=== PATIENT | male | born 1955 | race Caucasian/White ===

== ENCOUNTER → 2021-06-02 | Outpatient (CLI) | payer MEDICARE ==
[~2021-06-02] MED LIST: AMLO1TAB24; AMLO1TAB25; BREO1INH; CLAR1TAB13 PO; MECL-86; MULTTAB86 PO; OMEP-218
== END ==
LOC: M LABSMTC 09:20
PROVIDERS: ATTEND Anesthesiology
DX: Z01.812 Encounter for preprocedural laboratory examination (principal); Z20.822 Contact with and (suspected) exposure to COVID-19

== ENCOUNTER 2021-06-06 06:46 | Day surgery (SDC) | payer MEDICARE ==
[~2021-06-06] VITALS: Ht 170.2 cm; Wt 73.8 kg
[~2021-06-06 06:46] MED LIST changes: +NS 1,000 ML IV ONE
[2021-06-06] MEDS ORDERED: LIDOCAINE 2% 100MG/5ML SDV (FOR ANES.) As Ordered ONE (07:53)
[2021-06-06] MEDS ORDERED: propofoL 200 MG/20 ML VIAL As Ordered ONE (07:53)
--- NOTE | 2021-06-06 08:00 | ROOR ---
Patient Name: René Alberto Procedure Date: 06/06/2021 7:34 AM Date of : 1955 Age: 65 Room: [facility], [facility]IN [facility] Gender: Male Note Status: Finalized Procedure: Colonoscopy Indications: High risk colon cancer surveillance: Personal history of colonic polyps, Last colonoscopy: March 2015 Providers: Juaquin Lyon MD Referring MD: DARIEL ADLER MD Requesting Provider: Medicines: Monitored Anesthesia Care Complications: No immediate complications. Procedure: Pre-Anesthesia Assessment: - The heart rate, respiratory rate, oxygen saturations, blood pressure, adequacy of pulmonary ventilation, and response to care were monitored throughout the procedure. The Colonoscope was introduced through the anus and advanced to 10 cm into the ileum. The colonoscopy was performed without difficulty. The patient tolerated the procedure well. The quality of the bowel preparation was good. Findings: The perianal and digital rectal examinations were normal. The terminal ileum contained a single localized non-bleeding aphtha. No stigmata of recent bleeding were seen. Biopsies were taken with a cold forceps for histology. The remainder of the exam in the terminal ileum was normal. Four sessile polyps were found in the sigmoid colon, splenic flexure and ascending colon. The polyps were diminutive in size. These polyps were removed with a cold snare. Resection and retrieval were complete. Mild sigmoid diverticulosis and small internal hemorrhoids. The exam was otherwise without abnormality on direct and retroflexion views. Impression: - A single erosison in the terminal ileum (likely prep related). Biopsied. - Four diminutive polyps in the sigmoid colon, at the splenic flexure and in the ascending colon, removed with a cold snare. Resected and retrieved. - Mild sigmoid diverticulosis and small internal hemorrhoids. - The examination was otherwise normal on direct and retroflexion views. Recommendation: - Repeat colonoscopy in 3 years for surveillance. Procedure Code(s): --- Professional --- 68119, Colonoscopy, flexible; with removal of tumor(s), polyp(s), or other lesion(s) by snare technique 66616, 59, Colonoscopy, flexible; with biopsy, single or multiple Diagnosis Code(s): --- Professional --- K63.5, Polyp of colon K63.89, Other specified diseases of intestine Z86.010, Personal history of colonic polyps CPT copyright 2019 [employer]. All rights reserved. The codes documented in this report are preliminary and upon motion study analyst review may be revised to meet current compliance requirements. Juaquin Lyon MD Juaquin Lyon MD 06/06/2021 8:00:32 AM Electronically signed by Juaquin Lyon MD Number of Addenda: 0 Note Initiated On: 06/06/2021 7:34 AM Estimated Blood Loss: Estimated blood loss: none.
[2021-06-06 08:25] VITALS: BP 159/81
== END 2021-06-06 11:45 | disposition home or self-care (01) ==
LOC: M OPP 06:46
PROVIDERS: ATTEND Internal Medicine Gastroenterology
DX: Z12.11 Encounter for screening for malignant neoplasm of colon (principal); Z86.010 Personal history of colon polyps; K63.5 Polyp of colon; K63.89 Other specified diseases of intestine; K57.30 Diverticulosis of large intestine without perforation or abscess without bleeding; K64.8 Other hemorrhoids; R12 Heartburn; Z79.899 Other long term (current) drug therapy

== ENCOUNTER 2024-06-01 15:26 | Emergency (ER) | payer MEDICARE ==
[~2024-06-01] VITALS: Ht 167.6 cm; Wt 61.0 kg
[~2024-06-01 15:26] MED LIST changes: +AMLO1TAB24 PO; +ASPI81CH8 PO; +BREO1INH INH; +LORA-1041 PO; +MECL-86 PO; -NS 1,000 ML IV ONE; +OMEP-173; +OMEP-173 PO; -OMEP-218
[2024-06-01] MEDS: KETOROLAC 30 MG/ML 1ML VIAL IV ONE (16:32)
[2024-06-01 16:38] LABS: BASO # 0.1 10^3/uL (0.0-0.2); BASO % 0.6 % (0.0-1.0); EOS % 0.5 % (0.0-3.0); HEMATOCRIT 46.2 % (42.0-52.0); HEMOGLOBIN 15.8 g/dl (13.5-17.5); LYMPH # 1.7 10^3/uL (1.5-5.0); LYMPH % 18.9 % (24.0-44.0); MEAN CORPUSCULAR HEMOGLOBIN 30.7 pg (27.0-33.0); MEAN CORPUSCULAR HGB CONC 34.2 g/dl (32.0-36.5); MEAN CORPUSCULAR VOLUME 89.9 fl (80.0-96.0); MONO # 0.6 10^3/uL (0.0-0.8); MONO % 6.6 % (2.0-8.0); NEUTROPHILS # 6.4 10^3/uL (1.5-8.5); NEUTROPHILS % 73.2 % (36.0-66.0); PLATELET COUNT, AUTOMATED 308 10^3/uL (150-450); RED BLOOD COUNT 5.14 10^6/uL (4.30-6.10); WHITE BLOOD COUNT 8.8 10^3/uL (4.0-10.0)
[2024-06-01 16:57] LABS: LIPASE 27 U/L (12-53)
[2024-06-01 16:59] LABS: ALBUMIN 4.6 G/DL (3.2-5.2); ALKALINE PHOSPHATASE 97 U/L (46-116); ALT/SGPT 27 U/L (7.0-40); AST/SGOT 25 U/L (<34); BILIRUBIN,DIRECT 0.3 MG/DL (<0.4); BLOOD UREA NITROGEN 13 MG/DL (9-23); CALCIUM LEVEL 9.8 MG/DL (8.3-10.6); CARBON DIOXIDE LEVEL 29 MMOL/L (20-31); CHLORIDE LEVEL 104 MMOL/L (98-107); CREATININE FOR GFR 1.05 MG/DL (0.70-1.30); GLOMERULAR FILTRATION RATE > 60.0 (>49); GLUCOSE, FASTING 104 MG/DL (74-106); POTASSIUM SERUM 4.9 MMOL/L (3.5-5.1); SODIUM LEVEL 137 MMOL/L (136-145); TOTAL PROTEIN 7.6 G/DL (5.7-8.2)
[2024-06-01] MEDS ORDERED: NAPR-837 PO (19:18)
[2024-06-01 19:26] VITALS: BP 142/97; TEMP 98.7; O2SAT 98
== END 2024-06-01 19:45 | disposition home or self-care (01) ==
LOC: EDBD 15:26 → M ED 15:26
DX: M54.32 Sciatica, left side (principal); M16.12 Unilateral primary osteoarthritis, left hip; E11.9 Type 2 diabetes mellitus without complications; I10 Essential (primary) hypertension; J45.909 Unspecified asthma, uncomplicated; K21.9 Gastro-esophageal reflux disease without esophagitis; Z79.899 Other long term (current) drug therapy
CPT/HCPCS: 72110; 73502; 80048; 80076; 81001; 83690; 85025; 96374; 99284; J1885